=== PATIENT | female | born 1960 | race Hispanic/Latino ===

== ENCOUNTER 2017-05-21 14:02 | Outpatient (CLI) | payer BC ==
--- NOTE | 2017-05-22 13:42 | PET Report ---
PET SB TO MT INITIAL: HISTORY: Initial staging of colon cancer. TECHNIQUE: 13.4 millicuries F-18 FDG was administered intravenously. Noncontrast CT images and PET images were obtained from the skull base to the proximal thighs. Fused images were reviewed on a workstation. The patient's blood glucose level measured 130. COMPARISON: None at this facility. FINDINGS: BRAIN: physiologic FDG uptake in the imaged brain. NECK: physiologic FDG uptake. MEDIASTINUM: physiologic FDG uptake. LUNGS: physiologic FDG uptake. PLEURA/PERICARDIUM: physiologic FDG uptake. THORACIC LYMPH NODES: physiologic FDG uptake. HEPATOBILIARY: physiologic FDG uptake. Mean liver SUV measures 3.2. Cholelithiasis is noted. PANCREAS: physiologic FDG uptake. SPLEEN: physiologic FDG uptake. ADRENAL GLANDS: physiologic FDG uptake. KIDNEYS/RENAL COLLECTING SYSTEMS: physiologic FDG uptake. BOWEL/MESENTERY: physiologic FDG uptake. Surgical suture line in the rectum is identified. No obvious recurrent mass in this area. The remaining bowel loops and appendix are unremarkable. PELVIC VISCERA: physiologic FDG uptake. Hysterectomy changes are noted. ABDOMINAL/PELVIC LYMPH NODES: physiologic FDG uptake. MUSCULOSKELETAL: physiologic FDG uptake. IMPRESSION: Negative PET/CT. No evidence for disease recurrence or metastasis. Cholelithiasis. Surgical changes as described.
== END 2017-05-21 14:03 | disposition home or self-care (01) ==
LOC: PET 14:02
DX: C19 Malignant neoplasm of rectosigmoid junction (principal); K80.20 Calculus of gallbladder without cholecystitis without obstruction; Z79.899 Other long term (current) drug therapy; Z90.710 Acquired absence of both cervix and uterus
CPT/HCPCS: 78815; 82962; A9552

== ENCOUNTER 2017-12-14 09:58 | Outpatient (CLI) | payer BC ==
[2017-12-14 10:47] LABS: Alanine Aminotransferase 37 units/L (7-56); Albumin 4.2 g/dL (3.9-5); BUN/Creatinine Ratio 20; Blood Urea Nitrogen 12 mg/dL (7-17); Calcium 9.5 mg/dL (8.4-10.2); Hemolysis Index 3
--- NOTE | 2017-12-14 14:30 | Cat Scan Report ---
CT ABDOMEN PELVIS WITH CONTRAST: HISTORY: Malignant neoplasm of rectosigmoid junction, colon cancer. COMPARISON: PET CT dated 05/21/17. TECHNIQUE: Helical CT in 1.25mm intervals following IV contrast. Sagittal and coronal reconstructions. FINDINGS: Lung bases: Adequately aerated. Minor linear scarring or atelectasis is noted in the right lower lobe and lingula. Normal heart size. Liver: Normal. Biliary system: Multiple small partially calcified gallstones are noted in the gallbladder fundus. No abnormal distention or wall thickening. The CBD and intrahepatic ducts are normal caliber. Pancreas: Normal. Spleen: Normal. Kidneys/ureters/bladder: Normal. Adrenal glands: Normal. Aorta: Normal. Intestines: A surgical suture line is noted near the rectosigmoid junction. No recurrent mass or inflammation in this area. The remaining bowel loops are normal caliber and wall thickness. No evidence for mass, focal inflammation or obstruction. Appendix: Normal. Pelvic viscera: Hysterectomy. Ascites: None. Adenopathy: None. Musculoskeletal: No suspicious bony lesion is identified. IMPRESSION: No evidence for disease recurrence or metastasis in the abdomen and pelvis. Cholelithiasis. Surgical changes as described.
== END 2017-12-14 09:59 | disposition home or self-care (01) ==
LOC: CT 09:58
DX: C19 Malignant neoplasm of rectosigmoid junction (principal); K80.20 Calculus of gallbladder without cholecystitis without obstruction; I10 Essential (primary) hypertension; E11.9 Type 2 diabetes mellitus without complications; Z90.710 Acquired absence of both cervix and uterus; Z98.890 Other specified postprocedural states
CPT/HCPCS: 36415; 74177; 80053; 82378; 86301; Q9967

== ENCOUNTER 2018-10-14 08:48 | Outpatient (CLI) | payer BC ==
--- NOTE | 2018-10-14 09:56 | XRay Report ---
ROUTINE CHEST, TWO VIEWS: HISTORY: Malignant neoplasm of colon. The trachea, heart, mediastinal contour, lung walter and bony thorax are unremarkable. IMPRESSION: Unremarkable chest x-ray.
[2018-10-14 10:29] LABS: Blood Urea Nitrogen 9 mg/dL (7-17)
--- NOTE | 2018-10-14 14:41 | Cat Scan Report ---
PROCEDURE: CT ABDOMEN PELVIS W CON TECHNIQUE: Multiple contiguous axial images were obtained from lung bases to the pubic symphysis aft er administration of IV and oral contrast. Reformatted sagittal and coronal images were available for review HISTORY: RECTOSIGMOIG CANCER COMPARISONS: None. FINDINGS: Lower thorax: Dependent atelectasis at the bilateral lung bases Liver and biliary tree: The liver is mildly enlarged, measuring up to 19 cm in craniocaudal dimension . Diffusely decreased attenuation in the hepatic parenchyma Gallbladder: The gallbladder is distended. There are multiple small calcified gallstones. There is no pericholecystic fluid. Spleen: 7 mm low-density lesion in the anterior aspect of the spleen, too small to characterize but m ay represent a cyst. Pancreas: Normal. Adrenal glands: Normal. Kidneys, ureters, and bladder: Normal. Bowel: No focal wall thickening. No evidence of obstruction. Postsurgical changes of the rectosigmoid junction. Large amount of stool within the colon. Peritoneal cavity: No free air or free fluid. No significant lymphadenopathy. Postsurgical changes in the left iliac region, that may be due to prior lymph node dissection. Pelvic Organs: The uterus has been surgically removed. Vasculature: Normal caliber of the abdominal aorta without evidence of aneurysm. Scattered atheroscle rotic calcifications. Normal appearance of the portal venous system and inferior vena cava. Abdominal wall: Normal. Bones: Compression deformity of the T12 vertebral body with mild (less than 20%) loss of height. IMPRESSION: Mildly distended gallbladder with cholelithiasis. Findings may represent acute cholecystitis in the a ppropriate clinical setting. Compression deformity of the T12 vertebral body, of unclear age. Recommend clinical correlation and c omparison to any previous studies. Postsurgical changes of the rectosigmoid junction. No recurrent mass or evidence of metastatic diseas e. Mild hepatomegaly and hepatic steatosis. This document is electronically signed by Madonna Tracy MD., October 14 2018 02:39:02 PM ET
== END 2018-10-14 08:49 | disposition home or self-care (01) ==
LOC: CT 08:48
PROVIDERS: ATTEND Internal Medicine Hematology & Oncology
DX: C19 Malignant neoplasm of rectosigmoid junction (principal); K80.00 Calculus of gallbladder with acute cholecystitis without obstruction; K82.8 Other specified diseases of gallbladder; K76.0 Fatty (change of) liver, not elsewhere classified
CPT/HCPCS: 36415; 71046; 74177; 82565; 84520; Q9967